=== PATIENT | female | born 1955 | race Caucasian/White ===

== ENCOUNTER 2021-03-14 10:22 | Outpatient (RCR) | payer OTHER, SELFPAY | END 2021-04-18 14:49 | disposition home or self-care (01) | LOC: HO.WCC 10:22 | PROVIDERS: PCP Internal Medicine; Referring Provider Podiatrist; Visit Provider Physician Assistant | DX: I87.313 Chronic venous hypertension (idiopathic) with ulcer of bilateral lower extremity (principal); L97.822 Non-pressure chronic ulcer of other part of left lower leg with fat layer exposed; L97.812 Non-pressure chronic ulcer of other part of right lower leg with fat layer exposed; I73.9 Peripheral vascular disease, unspecified; I87.2 Venous insufficiency (chronic) (peripheral); E66.9 Obesity, unspecified; E65 Localized adiposity; Z79.899 Other long term (current) drug therapy | CPT/HCPCS: 11042; 29580; 97597; 99212; 99214; 99215 ==

== ENCOUNTER 2023-02-19 13:45 | Outpatient (RCR) | payer OTHER, SELFPAY | END 2023-03-08 10:36 | disposition home or self-care (01) | LOC: HO.WCC 13:45 | PROVIDERS: PCP Internal Medicine; Visit Provider Physician Assistant | DX: I87.331 Chronic venous hypertension (idiopathic) with ulcer and inflammation of right lower extremity (principal); L97.812 Non-pressure chronic ulcer of other part of right lower leg with fat layer exposed; I73.9 Peripheral vascular disease, unspecified; I87.2 Venous insufficiency (chronic) (peripheral); I10 Essential (primary) hypertension; Z87.891 Personal history of nicotine dependence | CPT/HCPCS: 11042; 99212 ==

== ENCOUNTER 2023-05-31 07:57 | Outpatient (RCR) | payer OTHER, SELFPAY | END 2023-06-14 17:00 | disposition home or self-care (01) | LOC: HO.WCC 07:57 | PROVIDERS: PCP Internal Medicine; Visit Provider Physician Assistant | DX: Z09 Encounter for follow-up examination after completed treatment for conditions other than malignant neoplasm (principal); I73.9 Peripheral vascular disease, unspecified; I10 Essential (primary) hypertension; I87.2 Venous insufficiency (chronic) (peripheral); Z87.891 Personal history of nicotine dependence; Z87.2 Personal history of diseases of the skin and subcutaneous tissue | CPT/HCPCS: 11042; 11045; 99212 ==